=== PATIENT | male | born 2000 | race Caucasian/White ===

== ENCOUNTER 2022-01-30 00:14 | Emergency (ER) | payer MEDICAID ==
[~2022-01-30 00:14] MED LIST: IBU600 MG PO; TYLENOL 500 MG500 MG PO
[2022-01-31] MEDS ORDERED: IBUPROFEN800 MG PO (22:43)
== END 2022-01-30 02:35 | disposition home or self-care (01) ==
LOC: ER1 00:14
DX: S80.01XA Contusion of right knee, initial encounter (principal); S20.212A Contusion of left front wall of thorax, initial encounter; J45.909 Unspecified asthma, uncomplicated; W01.10XA Fall on same level from slipping, tripping and stumbling with subsequent striking against unspecified object, initial encounter
CPT/HCPCS: 71046; 73562; 93005; 99284